=== PATIENT | female | born 1995 | race Caucasian/White ===

== ENCOUNTER 2024-05-14 15:06 | Emergency (ER) | payer BC | END 2024-05-14 17:53 | disposition home or self-care (01) | LOC: CSHERS 15:06 | DX: F41.9 Anxiety disorder, unspecified (principal); R06.02 Shortness of breath; F17.290 Nicotine dependence, other tobacco product, uncomplicated | CPT/HCPCS: 71046; 80053; 84443; 84484; 84703; 85025; 93005 ==